=== PATIENT | female | born 1945 | race Caucasian/White ===

== ENCOUNTER 2020-03-01 11:19 | Outpatient (CLI) | payer OTHER ==
[~2020-03-01] VITALS: Ht 152.4 cm; Wt 77.1 kg
[2020-03-01] MEDS ORDERED: LIPO-FLAVONOID1 EACH PO (12:11)
[2020-03-01] MEDS ORDERED: CIPRO HC OTIC S10 ML OT (12:12)
== END 2020-03-01 14:20 | disposition home or self-care (01) ==
LOC: OFIC 805 11:19
PROVIDERS: ATTEND Otolaryngology
DX: H60.8X2 Other otitis externa, left ear (principal); H93.12 Tinnitus, left ear; H61.21 Impacted cerumen, right ear

== ENCOUNTER 2020-07-21 14:28 | Outpatient (CLI) | payer OTHER ==
[~2020-07-21 14:28] MED LIST: CIPRO HC OTIC S10 ML OT; LIPO-FLAVONOID1 EACH PO
== END 2020-07-21 15:20 | disposition home or self-care (01) ==
LOC: OFIC 805 14:28
PROVIDERS: ATTEND Otolaryngology
DX: H93.12 Tinnitus, left ear (principal); H61.22 Impacted cerumen, left ear

== ENCOUNTER → 2020-10-20 | Outpatient (CLI) | payer OTHER | END | disposition home or self-care (01) | LOC: OFIC 805 14:51 | PROVIDERS: ATTEND Otolaryngology | DX: R42 Dizziness and giddiness (principal); H69.82 Other specified disorders of Eustachian tube, left ear ==